=== PATIENT | male | born 1965 | race African-American/Black ===

== ENCOUNTER → 2018-03-22 | Outpatient (CLI) | payer MEDICARE, OTHER ==
[2014-10-17 11:50] VITALS: BP 118/69
[~2018-03-22] MED LIST: ATOR20TA58 PO; KETO120S5 TP; LORA10TA3 PO; OXCA300T PO
--- NOTE | 2018-03-22 14:29 | CARD ---
MR#: [id number] Date of Study: 03/22/2018 Ordering Physician: WALLACE BROWNE, Referring Physician: WALLACE BROWNE, Tech: Sherin Pino APPROVED REPORT EXAM: Two-dimensional and M-mode echocardiogram with Doppler and color Doppler. Other Information Quality : GoodHR: 77bpm INDICATION Murmur 2D DIMENSIONS RVDd2.4 (2.9-3.5cm)Left Atrium(2D)3.8 (1.6-4.0cm) IVSd1.1 (0.7-1.1cm)Aortic Root(2D)3.2 (2.0-3.7cm) LVDd5.0 (3.9-5.9cm)LVOT Diameter2.1 (1.8-2.4cm) PWd1.1 (0.7-1.1cm)LVDs3.3 (2.5-4.0cm) FS (%) 33.5 %SV73.1 ml LVEF(%)61.9 (>50%) Aortic Valve AoV Peak Frank.123.0cm/sAoV VTI19.3cm AO Peak GR.6.1mmHgLVOT VTI 14.67cm AO Mean GR.4mmHg Mitral Valve MV E Eynqnood39.7cm/sMV DECEL KVAU779ng MV A Mkpavyoc11.4cm/sE/A Ratio1.1 TDI Lateral E' P. V16.09cm/sMedial E' P. V13.22cm/s E/Lateral E'4.9E/Medial E'6.0 Tricuspid Valve TR P. Rwuepdxe310qw/sRAP [id number] TR Peak Gr.15abXjDERA06zbBx Pulmonary Vein PVa [id number] LEFT VENTRICLE The left ventricle is normal size. There is normal left ventricular wall thickness. The left ventricu lar systolic function is normal. The ejection fraction is estimated at 60-65%. There is normal LV seg mental wall motion. RIGHT VENTRICLE The right ventricle is normal size. There is normal right ventricular wall thickness. The right ventr icular systolic function is normal. ATRIA The left atrium size is normal. The right atrium size is normal. AORTIC VALVE The aortic valve is thickened but opens well. Doppler and Color Flow revealed no significant aortic r egurgitation. There is no significant aortic valvular stenosis. MITRAL VALVE The mitral valve is thickened but opens well. There is no mitral valve stenosis. Doppler and Color-fl ow revealed trace mitral regurgitation. TRICUSPID VALVE The tricuspid valve is normal in structure and function. Mild tricuspid regurgitation. There is no tr icuspid valve stenosis. GREAT VESSELS The aortic root is normal in size. The IVC was not visualized. PERICARDIAL EFFUSION There is no evidence of significant pericardial effusion. Critical Notification Critical Value: No <Conclusion> The left ventricular systolic function is normal. The ejection fraction is estimated at 60-65%. There is normal LV segmental wall motion. Doppler and Color-flow revealed trace mitral regurgitation. There is no evidence of significant pericardial effusion. Signed by : Rashi Balderas, Electronically Approved : 03/22/2018 14:28:29
== END | disposition home or self-care (01) ==
LOC: ECHO 13:07
PROVIDERS: ATTEND Family Medicine
DX: R01.1 Cardiac murmur, unspecified (principal)
CPT/HCPCS: 93306

== ENCOUNTER → 2019-03-23 | Outpatient (CLI) | payer MEDICAID ==
[2014-10-17 11:50] VITALS: BP 118/69
[~2019-03-23] MED LIST changes: -OXCA300T PO; +OXCA300T19 PO
--- NOTE | 2019-03-23 10:57 | CARD ---
MR#: [id number] Date of Study: 03/23/2019 Ordering Physician: WALLACE BROWNE, Referring Physician: WALLACE BROWNE Tech: Lucia Marques [facility] APPROVED REPORT EXAM: Two-dimensional and M-mode echocardiogram with Doppler and color Doppler. Other Information Quality : Good INDICATION Murmur 2D DIMENSIONS RVDd2.5 (2.9-3.5cm)Left Atrium(2D)3.3 (1.6-4.0cm) IVSd0.7 (0.7-1.1cm)Aortic Root(2D)2.7 (2.0-3.7cm) LVDd5.4 (3.9-5.9cm)LVOT Diameter1.9 (1.8-2.4cm) PWd0.7 (0.7-1.1cm)LVDs2.7 (2.5-4.0cm) FS (%) 30.0 %SV112.9 ml LVEF(%)60.0 (>50%) Mitral Valve MV E Hvndkjjk37.3cm/sMV E Peak Gr.170mmHg MV DECEL [id number] A Evfxfzcm75.7cm/s MV HPB91zdP/A Ratio1.3 MVA (PHT)3.14cm2 TDI E/Lateral E'10.9E/Medial E'10.1 Tricuspid Valve TR P. Mtpaunue067bw/sRAP NAAMEJOE4kkAn TR Peak Gr.67zmLsVHJQ74qePx Pulmonary Vein S1 Aakykxnc89.8cm/sD2 Zebhfqow56.7cm/s LEFT VENTRICLE The left ventricle is normal size. There is normal left ventricular wall thickness. The left ventricu lar systolic function is normal and the ejection fraction is within normal range. The Ejection Fracti on is 55-60%. There is normal LV segmental wall motion. Transmitral Doppler flow pattern is Grade I-a bnormal relaxation pattern. RIGHT VENTRICLE The right ventricle is normal size. The right ventricular systolic function is normal. ATRIA The left atrium size is normal. The right atrium size is normal. The interatrial septum is intact wit h no evidence for an atrial septal defect or patent foramen ovale as noted on 2-D or Doppler imaging. AORTIC VALVE The aortic valve is normal in structure and function. Doppler and Color Flow revealed trace aortic re gurgitation. There is no significant aortic valvular stenosis. MITRAL VALVE The mitral valve opens well. A moderate posterior mitral valve prolapse is present. There is no hermes l valve stenosis. Doppler and Color-flow revealed moderate mitral regurgitation. TRICUSPID VALVE The tricuspid valve is normal in structure and function. Doppler and Color Flow revealed trace tricus pid regurgitation. The PA pressure was estimated at 20 mmHg. There is no tricuspid valve stenosis. PULMONIC VALVE The pulmonary valve is normal in structure and function. Doppler and Color Flow revealed mild pulmoni c valvular regurgitation. There is no pulmonic valvular stenosis. GREAT VESSELS The aortic root is normal in size. The ascending aorta is normal in size. The IVC is normal in size a nd collapses >50% with inspiration. PERICARDIAL EFFUSION There is no evidence of significant pericardial effusion. Critical Notification Critical Value: No <Conclusion> The left ventricle is normal size. The left ventricular systolic function is normal and the ejection fraction is within normal range. The Ejection Fraction is 55-60%. There is no significant aortic valvular stenosis. Doppler and Color Flow revealed trace aortic regurgitation. Doppler and Color-flow revealed moderate mitral regurgitation. Doppler and Color Flow revealed trace tricuspid regurgitation. The PA pressure was estimated at 20 mmHg. Signed by : Herbert Randall MD Electronically Approved : 03/23/2019 10:56:40
== END | disposition home or self-care (01) ==
LOC: ECHO 09:14
PROVIDERS: ATTEND Family Medicine
DX: I08.8 Other rheumatic multiple valve diseases (principal)
CPT/HCPCS: 93306